=== PATIENT | male | born 1990 | race Two or more races ===

== ENCOUNTER 2021-06-19 01:20 | Emergency (ER) | payer MEDICAID ==
--- NOTE | 2021-06-19 01:29 | EDM.PDOC ---
ED HPI GENERAL MEDICAL PROBLEM - General Chief Complaint: Headache Stated Complaint: POSSIBLE CARBON MON Time Seen by Provider: 06/19/21 01:28 Source of Information: Reports: Patient History Limitations: Reports: No Limitations - History of Present Illness INITIAL COMMENTS - FREE TEXT/NARRATIVE: 31-year-old male attends the ED in the accompaniment of his family i.e. 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 He himself has only minimal headache. No nausea. His was more symptomatic with a headache and associated nausea without vomiting. All of their phones registered carbon monoxide toxicity. IVR smokes approximately half a pack of cigarettes daily will therefore have a mildly elevated carbon oxide level. At present he feels otherwise well. The left third dwelling and came directly to the emergency room for evaluation particularly with the daughter Onset: Today, Sudden Onset Date: 06/19/21 Duration: Hour(s): (First alarm went off at approximately 2216 hrs. and further alarms went off until shortly after midnight when they left her dwelling) Location: Reports: Generalized Quality: Reports: Other (Spelt carbon oxide exposure in their home.) Severity: Moderate Worsens with: Reports: None Context: Reports: Other (Possible carbon oxide exposure.). Denies: Activity, Exercise, Lifting, Sick Contact, Trauma Associated Symptoms: Reports: No Other Symptoms. 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 [No Known Home Meds] 06/19/21 [History] Social & Family History - Tobacco Use Tobacco Use Status *Q: Current Every Day Tobacco User Tobacco Use Within Last Twelve Months: Cigarettes (Usually 10 to 15 cigarettes/day) ED ROS GENERAL - Review of Systems Review Of Systems: See Below Constitutional: Denies: Fever, Chills, Malaise, Weakness, Fatigue, Decreased Appetite, Weight Loss HEENT: Reports: No Symptoms Respiratory: Reports: Cough. Denies: Shortness of Breath, Wheezing, Pleuritic Chest Pain, Sputum Cardiovascular: Reports: No Symptoms (Vaginal morning cough.) Endocrine: Reports: No Symptoms GI/Abdominal: Reports: No Symptoms : Reports: No Symptoms Musculoskeletal: Reports: No Symptoms Skin: Reports: No Symptoms Neurological: Reports: No Symptoms Psychiatric: Reports: No Symptoms Hematologic/Lymphatic: Reports: No Symptoms Immunologic: Reports: No Symptoms - Physical Exam Exam: See Below Exam Limited By: No Limitations General Appearance: Alert, WD/WN, No Apparent Distress, Other (Vital signs show temperature 36.3. Heart rate 85 and sinus. Respiratory to 14 with O2 sats of 99% room air. BP 12/26/1978) Eye Exam: Bilateral Eye: Normal Inspection (No blepharal pallor or scleral icterus.), PERRL Throat/Mouth: Normal Inspection, Normal Lips, Normal Teeth, Normal Oropharynx Head Exam: Atraumatic, Normocephalic Neck: Normal Inspection, Supple, Non-Tender, Full Range of Motion. No: Lymphadenopathy (L), Lymphadenopathy (R) Respiratory/Chest: No Respiratory Distress, Lungs Clear, Normal Breath Sounds, No Accessory Muscle Use. No: Wheezing Cardiovascular: Normal Peripheral Pulses, Regular Rate, Rhythm, No Edema, No Gallop, No Murmur, No Rub Course - Vital Signs Last Recorded V/S: Last Vital Signs Temp 36.3 C 06/19/21 01:34 Pulse 85 06/19/21 01:34 Resp 14 06/19/21 01:34 BP 130/79 06/19/21 01:34 Pulse Ox 99 06/19/21 01:34 - Orders/Labs/Meds Labs: Laboratory Tests 06/19/21 Range/Units 01:45 ABG Carboxyhemoglobin 4.6 H (0.00-1.50) %THgb - Radiology Interpretation Free Text/Narrative:: 31-year-old male presents to the ED in the company of his family i.e. is common- law and their 1 year [id number]-year-old daughter after multiple car monoxide alarms went off in their apartment here in [place]. First alarm went off around 2216 hrs. and other alarms went off after that and the alarm on eir phone. The left the apartment and came directly to the hospital which is nearby their home. Have ER smokes approximately half a pack of cigarettes daily. Plan will be to have a carboxyhemoglobin done stat. He is otherwise in good health and takes no medications. - Re-Assessments/Exams Free Text/Narrative Re-Assessment/Exam: 06/19/21 01:48 Carboxyhemoglobin hemoglobin globin level came back at 4.9 which would be normal for a smoker. Certainly not high enough to require oxygen supplementation and unlikely to represent a significant exposure. Waves or common-law 's level came back at 1.9 suggesting unlikely exposure to a significant level of carbon monoxide. The plan will be to have the fire department meet them at their home with there is no first to check things out to make sure that their home is safe to return to [facility]. Departure - Departure Time of Disposition: 02:20 Disposition: Home, Self-Care 01 Condition: Fair Clinical Impression: Exposure to carbon monoxide - Discharge Information *PRESCRIPTION DRUG MONITORING PROGRAM REVIEWED*: Not Applicable *COPY OF PRESCRIPTION DRUG MONITORING REPORT IN PATIENT [facility]IN[facility]: Not Applicable Instructions: Carbon Monoxide Poisoning, [id number] Referrals: Chela Bernal MD [Primary Care Provider] - Forms: ED Department Discharge Additional Instructions: Evaluation in the emergency room this morning in regards to possible exposure to carbon monoxide in your apartment suite when all of your car monoxide monitors alarmed and suggested there was significant levels of carbon oxide in your apartment. The reason for this remains unclear. Your carboxyhemoglobin level in the emergency room was 4.9 and anything under 5 is usually considered benign and often up to 5 is identified in cigarette smokers. I will have the fire department meet you at your dwelling when you leave the emergency room to use there is no first to identify a potential source of carbon monoxide to make sure that her home is safe. Sepsis Event Note (ED) - Focused Exam Vital Signs: Vital Signs Temp Pulse Resp BP Pulse Ox 06/19/21 01:34 36.3 C 85 14 130/79 99
== END 2021-06-19 02:30 | disposition home or self-care (01) ==
LOC: EDSEX 01:20 → JD.ED 01:20
DX: Z77.098 Contact with and (suspected) exposure to other hazardous, chiefly nonmedicinal, chemicals (principal); F17.210 Nicotine dependence, cigarettes, uncomplicated
CPT/HCPCS: 82375; 99282; 99284